=== PATIENT | male | born 1950 ===

== ENCOUNTER → 2017-02-10 | Outpatient (CLI) | payer MEDICARE | LOC: LGSMG 13:07 | DX: I12.9 Hypertensive chronic kidney disease with stage 1 through stage 4 chronic kidney disease, or unspecified chronic kidney disease (principal); M10.9 Gout, unspecified; Z79.899 Other long term (current) drug therapy; E78.5 Hyperlipidemia, unspecified; N13.8 Other obstructive and reflux uropathy; R80.9 Proteinuria, unspecified; E55.9 Vitamin D deficiency, unspecified; N18.3 Chronic kidney disease, stage 3 (moderate) ==